=== PATIENT | female | born 1985 | race Caucasian/White ===

== ENCOUNTER 2019-08-16 20:26 | Emergency (ER) | payer MEDICAID ==
--- NOTE | 2019-08-16 20:41 | Emergency Department Record ---
History of Present Illness - General Chief Complaint: Laceration(s) Stated Complaint: KICKED IN MOUTH BY HORSE Time Seen by Provider: 08/16/19 20:32 Source: Patient Mode of Arrival: Ambulatory Limitations: No limitations - History of Present Illness Initial Commments: 34 yo female presents to ED for evaluation following injury to the chin, reports that she was kicked by a horse prior to arrival. Patient reports laceration and that "my teeth feel like they were knocked loose". Patient reports pain extending up to the mandibular condyle region, denies head or neck injury on examination. Patient denies health problems at her baseline, does not take blood thinner medications are her baseline. Onset/Timin -: Hour(s) Location: Face Place: Outdoors Context: Accidental Associated Symptoms: None - [place] Coma Scale Eye Response: (4) Open spontaneously Motor Response: (6) Obeys commands Verbal Response: (5) Oriented Aidan Total: 15 - Related Data Hx Tetanus Toxoid Vaccination: No Patient Tetanus UTD (within 5 yrs): No Previous Rx's Medication Instructions Recorded Clindamycin HCl 300 mg PO QID #28 capsule 08/16/19 Allergies Allergy/AdvReac Type Severity Reaction Status Date / Time No Known Drug Allergies Allergy Verified 08/16/19 20:34 Travel Screening - Travel/Exposure Within Last 30 Days Have you traveled within the last 30 days?: No - Travel Symptoms Symptom Screening: None Review of Systems Constitutional: Denies: Chills, Fever, Malaise, Night sweats Eyes: Denies: Eye discharge, Eye pain ENT: Reports: Dental pain. Denies: Congestion, Ear pain, Epistaxis Respiratory: Denies: Cough, Dyspnea Cardiovascular: Denies: Chest pain, Dyspnea on exertion Endocrine: Denies: Fatigue, Heat or cold intolerance Gastrointestinal: Denies: Abdominal pain, Nausea, Vomiting Genitourinary: Denies: Incontinence, Retention Musculoskeletal: Denies: Arthralgia, Back pain Skin: Reports: Other (Laceration to the chin on examination). Denies: Bruising, Change in color Neurological: Denies: Abnormal gait, Confusion, Headache, Seizure Psychiatric: Denies: Anxiety Hematological/Lymphatic: Denies: Anemia, Blood Clots Past Medical History - SOCIAL HISTORY Smoking Status: Never smoker Alcohol Use: Occasional Drug Use: None - RESPIRATORY Hx Respiratory Disorders: No - CARDIOVASCULAR Hx Cardio Disorders: No - NEURO Hx Neuro Disorders: No - GI Hx GI Disorders: No - Hx Genitourinary Disorders: No - ENDOCRINE Hx Endocrine Disorders: No - MUSCULOSKELETAL Hx Musculoskeletal Disorders: No - PSYCH Hx Psych Problems: No - HEMATOLOGY/ONCOLOGY Hx Hematology/Oncology Disorders: No Family Medical History Any Significant Family History?: No Family Hx Comment (NOT TO BE USED IN PLACE OF ITEMS BELOW): DENIES Physical Exam - General General Appearance: Alert, Oriented x3, Cooperative, Mild distress Limitations: No limitations - Head Head exam detail: Laceration. negative: Abrasion, Contusion, Meyers's sign, General tenderness, Hematoma Image of Chin: 1 - Stellate laceration involving the chin, measuring approximately 4.5 cm in total length - Eye Eye exam: Normal appearance. negative: Conjunctival injection, Periorbital swelling, Periorbital tenderness, Scleral icterus - ENT Ear exam: negative: Auricular hematoma, Auricular trauma Nasal Exam: negative: Active bleeding, Discharge, Dried blood, Foreign body Mouth exam: negative: Drooling, Laceration, Muffled voice, Tongue elevation Throat exam: negative: Tonsillar erythema, Tonsillomegaly, R peritonsillar mass, L peritonsillar mass - Neck Neck exam: Normal inspection. negative: Meningismus, Tenderness - Respiratory Respiratory exam: Normal lung sounds bilaterally. negative: Rales, Respiratory distress, Rhonchi, Stridor - Cardiovascular Cardiovascular Exam: Regular rate, Normal rhythm, Normal heart sounds - GI/Abdominal GI/Abdominal exam: Soft. negative: Rebound, Rigid, Tenderness - Rectal Rectal exam: Deferred - exam: Deferred - Extremities Extremities exam: Normal inspection. negative: Pedal edema, Tenderness - Back Back exam: Denies: CVA tenderness (R), CVA tenderness (L) - Neurological Neurological exam: Alert, Normal gait, Oriented X3 - Psychiatric Psychiatric exam: Normal affect, Normal mood - Skin Skin exam: Normal color. negative: Abrasion Type of lesion: negative: abrasion Course Vital Signs 08/16/19 20:27 Temperature 97.8 F Pulse Rate 100 H Respiratory 18 Rate Blood Pressure 143/92 Pulse Ox 94 L - Reevaluation(s) Reevaluation #1: 08/16/19 21:48 CT Maxillofacial bones: Soft-tissue laceration to the mandible No evidence for fracture or TMJ dislocation Small air-fluid level right maxillary sinus, likely inflammatory etiology Procedure Note: 4.5 cm laceration to the chin, bleeding controlled. Wound was cleaned and prepped in sterile fashion, no residual FB identified on examination. Wound was anesthetized with 3.0 mL of 1% Lidocaine with epinephrine with good anesthesia, and the laceration was repaired with 5-0 Prolene (#8) sutures in interrupted fashion. Patient tolerated the procedure well without complications. Patient's tetanus was updated prior to discharge. Patient was also started on Clindamcycin prior to discharge given the location of the patient's laceration. Patient was given wound care instructions and signs/symptoms to return to the ED for as well including: increased swelling, pain, redness, or discharge from the wound. Patient was counseled to return to the ED for suture removal in 10 days. Disposition Disposition: Discharge Clinical Impression: Laceration of chin Qualifiers: Encounter type: initial encounter Qualified Code(s): S01.81XA - Laceration without foreign body of other part of head, initial encounter Facial contusion Qualifiers: Encounter type: initial encounter Qualified Code(s): S00.83XA - Contusion of other part of head, initial encounter Disposition: Home, Self-Care Condition: (2) Stable Instructions: Care For Your Stitches (ED), Laceration (ED) Additional Instructions: Return to ED if your symptoms worsen or if you have any concerns. Clindamycin as directed. Sutures out in 10 days. Follow-up with your family doctor in 3-5 days as directed. Prescriptions: Clindamycin HCl 300 mg PO QID #28 capsule Forms: Patient Portal Access Time of Disposition: 21:51 Quality - Quality Measures Quality Measures: N/A - Blood Pressure Screening Does Patient Have Any of the Following: No Blood Pressure Classification: Hypertensive Reading Systolic Measurement: 143 Diastolic Measurement: 92 Screening for High Blood Pressure: < First Hypertensive BP, F/U Documented > [G8 950] First Hypertensive Follow-up Interventions: Referral to alternative/primary care provider.
--- NOTE | 2019-08-16 21:27 | CT SCAN REPORT ---
EXAMINATION: MAXILLOFACIAL WO CONTRAST EXAM DATE: 08/16/2019 9:17 PM TECHNIQUE: CT of the maxillofacial region obtained without contrast. INDICATION: mandible injury. ENCOUNTER: Initial COMPARISON: No similar comparison exam FINDINGS: Laceration noted anterior to the mandible. No fracture identified. Temporomandibular joints are intac t. There is mild paranasal sinus mucosal thickening. Small air-fluid level in the right maxillary sinus. Imaged portions of the mastoid air cells and middle ear cavities are unremarkable. The orbits are unremarkable. Imaged brain parenchyma is unremarkable IMPRESSION: 1. Soft tissue laceration anterior to the mandible. 2. No evidence of fracture or TMJ dislocation. 3. Small air-fluid level in in right maxillary sinus is inflammatory or traumatic, favoring inflamma tory etiology Dictated by: ESME LESTER MD on 08/16/2019 9:21 PM. .
[2019-08-16] MEDS ORDERED: Diph,Pert(Acell),Tet Vac 0.5 ML SYR IM ONE (21:48)
[2019-08-16] MEDS ORDERED: CLINDAMYCIN 150 MG CAP PO ONE (21:48)
== END 2019-08-16 22:02 | disposition home or self-care (01) ==
LOC: ER 20:26
DX: S01.81XA Laceration without foreign body of other part of head, initial encounter (principal); S00.83XA Contusion of other part of head, initial encounter; W55.12XA Struck by horse, initial encounter; Y92.89 Other specified places as the place of occurrence of the external cause
CPT/HCPCS: 12013; 70486; 90715; 96372; 99284